=== PATIENT | male | born 1950 | race Caucasian/White ===

== ENCOUNTER 2017-05-06 13:33 | Inpatient (IN) | payer BC, OTHER ==
[2017-05-06 13:41] VITALS: BMI 35.1
[2017-05-06] MEDS ORDERED: morphine CARPU-JECT 4 MG/1 ML DISP.SYRIN IVPUSH ONE ×2 (16:31→18:49)
[2017-05-06] MEDS ORDERED: SODIUM CHLORIDE 1,000 ML IV STA (16:32)
--- NOTE | 2017-05-06 16:40 | PDOC ---
History of Present Illness - General Chief Complaint: Suture/Staple Removal (other) Stated Complaint: Suture/Staple Removal Time Seen by Provider: 05/06/17 14:38 History Source: Patient - History of Present Illness Occurred: reports: other Severity: Yes: severe Lower Extremity Pain Location: right: foot, leg Past History - Past Medical History Allergies/Adverse Reactions: Allergies Allergy/AdvReac Type Severity Reaction Status Date / Time erythromycin base Allergy Rash Verified 05/06/17 13:43 Penicillins Allergy Rash Verified 05/06/17 13:43 Home Medications: Ambulatory Orders Clonazepam [Klonopin] 1.5 mg PO BID 05/06/17 Gabapentin [Neurontin] 400 mg PO PRN 05/06/17 Lamotrigine [Lamictal] 400 mg PO ASDIR 05/06/17 Melatonin 3 mg PO TID 05/06/17 Oxycodone HCl/Acetaminophen [Percocet 5-325 mg Tablet] 1 combo PO PRN 05/06/17 Quetiapine Fumarate [Seroquel] 300 mg PO TID 05/06/17 Ropinirole HCl [Requip Xl] 2 mg PO DAILY 05/06/17 Sitagliptin Phosphate [Januvia] 50 mg PO DAILY 05/06/17 Tramadol HCl 50 mg PO ASDIR 05/06/17 Venlafaxine HCl ER [Effexor Xr -] 75 mg PO DAILY 05/06/17 COPD: No Diabetes: Yes Other medical history: MIGRAINES, URINARY INCONT. - Suicide/Smoking/Psychosocial Hx Smoking History: Never smoked Hx Alcohol Use: No Drug/Substance Use Hx: No Substance Use Type: None Review of Systems - Review of Systems Constitutional: No: Chills, Fever, Malaise Respiratory: No: Shortness of Breath Cardiac (ROS): No: Chest Pain, Palpitations *Physical Exam - Vital Signs Last Vital Signs Temp Pulse Resp BP Pulse Ox 98.5 F 113 H 20 117/73 96 05/06/17 13:35 05/06/17 13:35 05/06/17 13:35 05/06/17 13:35 05/06/17 13:35 - Physical Exam General Appearance: Yes: Appropriately Dressed. No: Apparent Distress HEENT: positive: Normal Voice Neck: positive: Supple Respiratory/Chest: positive: Lungs Clear, Normal Breath Sounds. negative: Respiratory Distress Cardiovascular: positive: S1, S2, Tachycardia Gastrointestinal/Abdominal: positive: Soft. negative: Tender Extremity: positive: Tender, Swelling, Other (right foot and leg significantly edematous with diffuse tenderness to palpation and blanchable erythema to medial foot and ankle, no crepitus palpated, multiple edwin intact, pedal pulses and sensation intact) Integumentary: positive: Dry, Warm Neurologic: positive: Fully Oriented, Alert, Normal Mood/Affect (odd affect) ED Treatment Course - LABORATORY CBC & Chemistry Diagram: 05/06/17 16:43 05/06/17 16:43 - RADIOLOGY Radiology Studies Ordered: Category Date Time Status CHEST X-RAY PORTABLE* [RAD] Stat Radiology 05/06/17 16:30 Ordered DUPLEX VASCUL US-1 LEG [US] Stat Ultrasound 05/06/17 16:30 Ordered Medical Decision Making - Medical Decision Making 05/06/17 16:33 66-year-old male, possible psych histor,y, NIDDM, migraines, prostate cancer, status post unclear R foot/ankle surgery to 3 weeks ago at [facility] "because the bones in my foot was going the wrong way" per pt, denies prior trauma, states he is due for his initial postop check this week and has been bearing weight at home, although specifically instructed to non-weight bear by using wheelchair as per pt. Prior to surgery, used walker to ambulate secondary to chronic bilateral foot pain. Patient states since surgery has had worsening pain/swelling and now unable to put any weight on right foot. No fever, chills , nausea, vomiting, and denies chest pain, shortness of breath or palpitations. See exam R/o RLE DVT vs cellulitis, unlikley osteo, low suspicion for nec fasciitis or compartment syndrome given duration of sxs and exam findings Tachy to 113 but afebrile w/ R foot and leg significantly edematous with diffuse tenderness to palpation and blanchable erythema to medial foot and ankle , no crepitus or bullae formation, multiple edwin intact, pedal pulses and sensation intac -pain control -IVF -abx -US -labs -anticipate admission (PMD Dr Romero) 05/06/17 16:47 Based on foot/ankle film, it appears that patient had surgery for distal tibia and possible fibula fracture. 05/06/17 17:11 H/H 8/25 w/ RBC ~2. Hgb in 2010 was 10. Pt states he does have a history of anemia. Does not remember last hemoglobin and is noncompliant with iron pills. No history of GI bleed. No history of transfusions in the past. Stool guaiac neg today. Cr 3.2 today, was 2.4 on labs in 2010 at [facility]. Pt states he has CKD and is aware that Cr is 3 which is not new per pt, was told his GFR was in the 20s per pt. No longer follows up with his kidney specialist, as is unhappy with care per patient. 05/06/17 19:00 Pt sheila dout to [facility] Olson pending XR/US report and call back for Nick to admit *DC/Admit/Observation/Transfer - Referrals Referrals: Ollie Romero MD [Primary Care Provider] - - Patient Instructions - Post Discharge Activity
[2017-05-06] MEDS ORDERED: morphine CARPU-JECT 10 MG/1 ML DISP.SYRIN ONE ×2 (16:59→18:59)
[2017-05-06 17:05] LABS: BASO % 1.1 % (0-2.0); EOS % 2.3 % (0-4.5); HEMATOCRIT 25.4 % (35.4-49); HEMOGLOBIN 8.4 GM/dL (11.7-16.9); MCH 30.1 pg (25.7-33.7); MCHC 33.1 g/dl (32.0-35.9); MEAN PLT VOLUME 7.3 fl (7.5-11.1); MONO % 9.3 % (3.8-10.2); NEUT % 73.3 % (42.8-82.8); PLATELET COUNT 369 K/MM3 (134-434); RBC 2.79 M/mm3 (4.00-5.60); RDW 14.5 % (11.9-15.9); WHITE BLOOD COUNT 9.4 K/mm3 (4.0-10.0)
[2017-05-06 17:30] LABS: ALBUMIN 3.1 g/dl (3.4-5.0); ANION GAP 9 (8-16); BILIRUBIN,TOTAL 0.4 mg/dL (0.2-1.0); BLOOD UREA NITROGEN 38 mg/dL (7-18); CALCIUM 8.8 mg/dL (8.5-10.1); CHLORIDE 99 mmol/L (98-107); CO2 30 mmol/L (21-32); CREATININE 3.2 mg/dL (0.7-1.3); GLUCOSE,RANDOM 106 mg/dL (74-106); POTASSIUM 4.5 mmol/L (3.5-5.1); SGOT/AST 14 U/L (15-37); SGPT/ALT 22 U/L (12-78); SODIUM 138 mmol/L (136-145); TOT PROT 6.7 g/dl (6.4-8.2)
[2017-05-06 17:31] LABS: ALK PHOS 131 U/L (45-117)
[2017-05-06] MEDS ORDERED: VANCOMYCIN 1,000 MG in DEXTROSE 5%-WATER - 250 ML IVPB ONE (17:48)
[2017-05-06] MEDS ORDERED: AZTREONAM 2 GM/10 ML SYRINGE (RESTRICTED TO ID) IVPUSH ONE (18:15)
[2017-05-06] MEDS ORDERED: VANCOMYCIN 1 GRAM (PRE-DOCKED) 1,000 MG/250 ML BAG IVPB ONE (18:22)
[2017-05-06 18:25] LABS: URINE APPEARANCE CLEAR; URINE BILIRUBIN NEGATIVE (NEGATIVE); URINE BLOOD NEGATIVE (NEGATIVE); URINE COLOR LTYELLOW; URINE GLUCOSE (UA) NEGATIVE (NEGATIVE); URINE KETONE NEGATIVE (NEGATIVE); URINE LEUK ESTERASE NEGATIVE (NEGATIVE); URINE NITRITE NEGATIVE (NEGATIVE); URINE PROTEIN NEGATIVE (NEGATIVE); URINE UROBILINOGEN NEGATIVE mg/dL (0.2-1.0)
[2017-05-06] MEDS ORDERED: SODIUM CHLORIDE 500 ML IV STA (18:49)
[2017-05-06] MEDS ORDERED: traMADol HCL 50 MG TABLET PO SCH (20:00)
[2017-05-06] MEDS ORDERED: morphine SULFATE 4 MG/ML VIAL SQ PRN (20:07)
--- NOTE | 2017-05-06 20:11 | PDOC ---
*Physical Exam - Vital Signs Last Vital Signs Temp Pulse Resp BP Pulse Ox 98.5 F 113 H 20 117/73 96 05/06/17 13:35 05/06/17 13:35 05/06/17 13:35 05/06/17 13:35 05/06/17 13:35 ED Treatment Course - LABORATORY CBC & Chemistry Diagram: 05/06/17 16:43 05/06/17 16:43 - ADDITIONAL ORDERS Additional order review: Laboratory Results 05/06/17 05/06/17 05/06/17 19:00 18:36 18:20 Sodium Potassium Chloride Carbon Dioxide Anion Gap BUN Creatinine Creat Clearance w eGFR Random Glucose Lactic Acid 0.7 Calcium Total Bilirubin AST ALT Alkaline Phosphatase C-Reactive Protein Total Protein Albumin Urine Color Ltyellow Urine Appearance Clear Urine pH 6.0 Ur Specific [place] 1.009 Urine Protein Negative Urine Glucose (UA) Negative Urine Ketones Negative Urine Blood Negative Urine Nitrite Negative Urine Bilirubin Negative Urine Urobilinogen Negative Ur Leukocyte Esterase Negative Stool Occult Blood Negative 05/06/17 05/06/17 16:43 16:43 Sodium 138 Potassium 4.5 Chloride 99 Carbon Dioxide 30 Anion Gap 9 BUN 38 H Creatinine 3.2 H Creat Clearance w eGFR 19.65 Random Glucose 106 Lactic Acid Calcium 8.8 Total Bilirubin 0.4 AST 14 L ALT 22 Alkaline Phosphatase 131 H C-Reactive Protein 12.6 H Total Protein 6.7 Albumin 3.1 L Urine Color Urine Appearance Urine pH Ur Specific [place] Urine Protein Urine Glucose (UA) Urine Ketones Urine Blood Urine Nitrite Urine Bilirubin Urine Urobilinogen Ur Leukocyte Esterase Stool Occult Blood 05/06/17 16:43 RBC 2.79 L MCV 91.0 MCHC 33.1 RDW 14.5 MPV 7.3 L Neutrophils % 73.3 Lymphocytes % 14.0 Monocytes % 9.3 Eosinophils % 2.3 Basophils % 1.1 - Medications Given in the ED: ED Medications Discontinued Medications Generic Name Dose Route Start Last Admin Trade Name Freq PRN Reason Stop Dose Admin Sodium Chloride 1,000 mls @ 1,000 mls/hr 05/06/17 16:32 05/06/17 17:04 Normal Saline - IV 05/06/17 17:31 1,000 mls/hr ASDIR STA Administration Vancomycin HCl 1,000 mg/ 250 mls @ 250 mls/hr 05/06/17 17:48 05/06/17 18:26 Dextrose IVPB 05/06/17 18:47 250 mls/hr ONCE ONE Administration Protocol Morphine Sulfate 4 mg 05/06/17 16:31 05/06/17 17:04 Morphine Injection - IVPUSH 05/06/17 16:32 4 mg ONCE ONE Administration Morphine Sulfate 4 mg 05/06/17 18:49 05/06/17 19:06 Morphine Injection - IVPUSH 05/06/17 18:50 4 mg ONCE ONE Administration Medical Decision Making - Medical Decision Making 05/06/17 20:06 Patient was endorsed to me by VIB[facility] Rodriguez pending admission and US report Case was discussed with Dr. Reyna for admission for Dr. Romero for admission. US reported no DVT will admit for continued antibiotics *DC/Admit/Observation/Transfer Diagnosis at time of Disposition: Cellulitis Qualifiers: Site of cellulitis: extremity Site of cellulitis of extremity: lower extremity Laterality: right Qualified Code(s): L03.115 - Cellulitis of right lower limb Post surgical complication Qualifiers: Surgical complication system/body Area: skin Surgical complication type: other Qualified Code(s): L76.82 - Other postprocedural complications of skin and subcutaneous tissue - Discharge Dispostion Condition at time of disposition: Stable Admit: Yes - Referrals Referrals: Ollie Romero MD [Primary Care Provider] - - Patient Instructions - Post Discharge Activity
[2017-05-06] MEDS: SODIUM CHLORIDE 1,000 ML IV SCH (21:03)
[2017-05-06] MEDS ORDERED: MELATONIN 1 MG TABLET PO SCH (22:00)
[2017-05-06] MEDS: clonazePAM 0.5 MG TABLET PO SCH (22:54)
[2017-05-06] MEDS: HEPARIN NA (PORCINE) 5,000 UNITS/ML 1ML VIAL SQ SCH (22:54)
[2017-05-06] MEDS: GABAPENTIN 400 MG CAPSULE (FP) PO SCH (22:54)
[2017-05-06] MEDS ORDERED: HEPARIN NA (PORCINE) 5,000 UNITS/ML 1ML VIAL ONE (22:57)
[2017-05-07] MEDS ORDERED: MELATONIN 1 MG TABLET PO SCH ×2 (06:00→14:00)
[2017-05-07] MEDS ORDERED: sitaGLIPtin PHOSPHATE 50 MG TABLET ONE (07:47)
[2017-05-07] MEDS: sitaGLIPtin PHOSPHATE 50 MG TABLET PO SCH (07:53)
[2017-05-07] MEDS: INSULIN SLIDING SCALE (NOVOLOG) 1 VIAL SQ SCH ×3 (07:53→16:57)
[2017-05-07 08:20] LABS: BASO % 0.6 % (0-2.0); EOS % 3.1 % (0-4.5); HEMATOCRIT 24.6 % (35.4-49); MCHC 32.8 g/dl (32.0-35.9); MEAN CELL VOLUME 91.5 fl (80-96); MEAN PLT VOLUME 7.1 fl (7.5-11.1); MONO % 7.9 % (3.8-10.2); NEUT % 74.4 % (42.8-82.8); PLATELET COUNT 343 K/MM3 (134-434); RBC 2.68 M/mm3 (4.00-5.60); RDW 15.2 % (11.9-15.9); WHITE BLOOD COUNT 7.9 K/mm3 (4.0-10.8)
[2017-05-07 08:44] LABS: ANION GAP 6 (8-16); BLOOD UREA NITROGEN 34 mg/dL (7-18); CALCIUM 8.4 mg/dL (8.5-10.1); CHLORIDE 107 mmol/L (98-107); CO2 29 mmol/L (21-32); CREATININE 2.8 mg/dL (0.7-1.3); GLUCOSE,RANDOM 87 mg/dL (74-106); POTASSIUM 4.5 mmol/L (3.5-5.1); SODIUM 142 mmol/L (136-145)
[2017-05-07] MEDS ORDERED: ROPINIROLE HCL 2 MG PO SCH ×2 (10:00→14:00)
[2017-05-07] MEDS: HEPARIN NA (PORCINE) 5,000 UNITS/ML 1ML VIAL SQ SCH ×2 (10:07→23:08)
[2017-05-07] MEDS: VENLAFAXINE HCL 75 MG E.R. CAPSULES (FP) PO SCH (10:08)
[2017-05-07] MEDS: GABAPENTIN 400 MG CAPSULE (FP) PO SCH ×2 (10:08→23:08)
[2017-05-07] MEDS: clonazePAM 0.5 MG TABLET PO SCH ×2 (10:09→23:08)
[2017-05-07] MEDS ORDERED: clonazePAM 0.5 MG TABLET ONE ×2 (10:14→22:57)
--- NOTE | 2017-05-07 10:33 | EKG ---
Test Reason : Blood Pressure : / mmHG Vent. Rate : 088 BPM Atrial Rate : 088 BPM P-R Int : 170 ms QRS Dur : 134 ms QT Int : 392 ms P-R-T Axes : 030 -14 -12 degrees QTc Int : 474 ms NORMAL SINUS RHYTHM RIGHT BUNDLE BRANCH BLOCK MINIMAL VOLTAGE CRITERIA FOR LVH, MAY BE NORMAL VARIANT ABNORMAL ECG WHEN COMPARED WITH ECG OF 11-MAR-2010 10:36, NONSPECIFIC T WAVE ABNORMALITY NOW EVIDENT IN ANTERIOR LEADS Confirmed by TOI GIBSON MD ([id number]) on 05/07/2017 10:33:31 AM Referred By: Confirmed By:TOI GIBSON MD
--- NOTE | 2017-05-07 17:18 | PN ---
Progress Note (short form) - Note Progress Note: ID Consult dictated Cellulitis R LE S/P ORIF R tibia/ fibula fracture PCN /Erythromycin allergies Pending c/s empiric vancomycin/ levaquin
[2017-05-07] MEDS ORDERED: VANCOMYCIN 1,000 MG in DEXTROSE 5%-WATER - 250 ML IVPB ONE (17:24)
[2017-05-07] MEDS ORDERED: LEVOFLOXACIN 500 MG IVPB 500 MG/100 ML BAG IVPB ONE (17:45)
--- NOTE | 2017-05-07 19:23 | CONS ---
INFECTIOUS DISEASE CONSULTATION DATE OF CONSULTATION: DATE OF DICTATION: 05/07/2017 REASON FOR CONSULTATION: The patient is a 66-year-old male who is evaluated for cellulitis of the right lower extremity. HISTORY OF PRESENT ILLNESS: History was obtained from the chart as he cannot give a reliable history. Patient appears to be developmentally challenged. He was unclear why he was in the emergency room. He states that he had increasing pain in his right lower extremity to the point where he was unable to ambulate or bear weight. On examination, he was noted to have surgical edwin in his right lower extremity as well as x-ray evidence of intramedullary rods, plates, and screws. Patient cannot tell me when he had orthopedic surgery and at which hospital. His major concern was having the edwin removed. He denies any purulent drainage from the wounds. He has had no fever or chills. PAST MEDICAL HISTORY: Positive for diabetes mellitus, prostate cancer, chronic kidney disease. ALLERGIES: PENICILLIN and ERYTHROMYCIN. Patient develops rash with both. He denies history of anaphylaxis or tongue swelling. MEDICATIONS: As an outpatient include Klonopin, Neurontin, Lamictal, melatonin, oxycodone, Seroquel, Januvia, Effexor. SOCIAL HISTORY: Patient states he lives in the community with his mother. Denies tobacco or alcohol use. Denies risk factors for HIV. His status is not documented. SYSTEMS REVIEW: Neurologic: No loss of consciousness, seizure activity, or focal weakness. Cardiac: Negative chest pain or palpitations. Respiratory: Negative cough or sputum production. Gastrointestinal: Negative vomiting or diarrhea. Genitourinary: Negative for urinary tract infection. Positive for chronic kidney disease. LABORATORY DATA: White count 7.9, hematocrit 24.6, platelet count 343. Sedimentation rate 109. Creatinine 2.8. Blood cultures are pending. Urinalysis negative. PHYSICAL EXAMINATION: General: He is awake and alert. He is in no acute distress. Vital Signs: Temperature 98.1; blood pressure 138/75; pulse 85, regular; respirations 20 per minute. HEENT: Sclerae are anicteric. Heart: Sounds S1, S2. No murmur. Lungs: Clear. Abdomen: Soft, obese, nontender. Extremities: Positive for right lower extremity swelling. He has multiple surgical edwin in place in the area of the malleolus and the calcaneus. There is patchy erythema involving the right lower extremity from the mid-leg to the foot. The distal leg and foot are swollen and warm. There is no purulent drainage noted from the surgical wounds. No crepitus or fluctuance. No lymphangitic streaking. IMPRESSION: 1. Cellulitis of the right lower extremity. 2. Possible infected orthopedic hardware. 3. Status post open reduction and internal fixation, right tibia/fibula fractures. 4. A history of PENICILLIN and ERYTHROMYCIN ALLERGIES. RECOMMENDATIONS: Await culture results. Empiric antibiotic coverage in this PENICILLIN ALLERGIC patient with vancomycin and Levaquin. Orthopedic evaluation. Analgesics as needed. Will follow. Thank you for the kind referral. SILVANA GAMEZ M.D. [id number]
--- NOTE | 2017-05-07 19:41 | HP ---
Admitting History and Physical - Primary Care Physician PCP: Ollie Romero - Admission Chief Complaint: Worsening Pain and swelling Rt LE History of Present Illness: 66 yrs old man poor historian H/O T2DM, Pituitary adenoma, Schizoaffective disorders, Migraine, CA Prostate, CKD stage 4 (Since 2010 BUN/Creat 32/2.4 on ), present to Ed with worsening pain, swelling of post Oprtive Rt LE , patient is unable to provide precise information and details about Surgery says he was unable to walk underwent Rt foot surgery at [facility], unable to recall obverting surgeon name, patient denies prior trauma, states he is due for his initial postop check this week and has been bearing weight at home, although specifically instructed to non-weight bear by using wheelchair as per pt. Prior to surgery, used walker to ambulate secondary to chronic bilateral foot pain. Patient states since surgery has had worsening pain/swelling and now unable to put any weight on right foot. Patient No fever, chills, nausea, vomiting, and denies chest pain, shortness of breath or palpitations. Patient is insisting to remove stapels so he can walk in the Ed hemodynamically stale and afebrile. Admitted for further management RT LE DVT scan is -ve for DVT. - Past Medical History Renal/: Yes: Renal Failure Musculoskeletal: Yes: Other (Foot pain) Endocrine: Yes: Diabetes Mellitus - Smoking History Smoking history: Never smoked - Alcohol/Substance Use Hx Alcohol Use: No - Social History Usual Living Arrangement: Yes: Alone Home Medications - Allergies Allergies/Adverse Reactions: Allergies Allergy/AdvReac Type Severity Reaction Status Date / Time erythromycin base Allergy Rash Verified 05/06/17 13:43 Penicillins Allergy Rash Verified 05/06/17 13:43 - Home Medications Home Medications: Ambulatory Orders Clonazepam [Klonopin] 1.5 mg PO BID 05/06/17 Gabapentin [Neurontin] 400 mg PO BID 05/06/17 Lamotrigine [Lamictal] 400 mg PO BID 05/06/17 Melatonin 3 mg PO TID 05/06/17 Oxycodone HCl/Acetaminophen [Percocet 5-325 mg Tablet] 2 combo PO BID PRN Quetiapine Fumarate [Seroquel] 300 mg PO TID 05/06/17 Ropinirole HCl [Requip Xl] 2 mg PO DAILY 05/06/17 Sitagliptin Phosphate [Januvia] 50 mg PO DAILY 05/06/17 Tramadol HCl 50 mg PO BID PRN 05/06/17 Venlafaxine HCl ER [Effexor Xr -] 75 mg PO DAILY 05/06/17 Family Disease History - Family Disease History Other Family History: Not contributary Review of Systems - Review of Systems Constitutional: reports: No Symptoms HENT: denies: Difficult Swallowing, Ear Discharge Neck: denies: Decreased ROM, Lumps, Pain on Movement Cardiovascular: denies: Chest Pain, Palpitations, Shortness of Breath Respiratory: denies: Cough, Hemoptysis, Orthopnea Gastrointestinal: denies: Abdominal Pain, Bloating, Constipation, Diarrhea Genitourinary: denies: Burning, Discharge, Dysuria Musculoskeletal: reports: Joint Swelling (Rt Foot pain and swelling) Integumentary: denies: Blister Neurological: reports: Change in LOC. denies: Change in Speech, Confusion Psychiatric: reports: Altered Sleep Pattern. denies: Anxiety, Depression Physical Examination Vital Signs: Vital Signs Temperature 98.3 F 05/07/17 18:06 Pulse Rate 88 05/07/17 18:06 Respiratory Rate 20 05/07/17 18:06 Blood Pressure 150/68 05/07/17 18:06 O2 Sat by Pulse Oximetry (%) 100 05/07/17 10:37 Elderly man confused not in distress HEENT: Mm moist no anemia, PERRLA EOMI NECK; No JVD, No Bruit, CHEST: CTA b/L CVs; S1S2 R no m/g/r ABD: No distention, non tender Bs + EXT: Rt LE Swelling around foot and ankle multiple edwin with tense skin, area of erythem around edwin, tenderness +, Pulses +, sensations intact. STILL RUNNER: Non focal Labs: CBC, BMP 05/07/17 07:30 05/07/17 07:30 Imaging - Results Chest X-ray: Report Reviewed (Atelactasis) X-ray: Report Reviewed (Rt Foot and ankle: Multiple Edwin Fracture Rt Distal Tibia nera IM nail Srew in Calcaneous) EKG: Report Reviewed (HR 88 NSR RBBB LAD LVH TN 170 QRS 139 QTC 474) Other: Report Reviewed (Rt LE Doppler; Negative for DVt) Problem List - Problems (1) Cellulitis Assessment/Plan: Pos operative PCN allergy Evaluated by ID recommended Vancomycine and Levofloxacin F/U Cultures Code(s): L03.90 - CELLULITIS, UNSPECIFIED Qualifiers: Site of cellulitis: extremity Site of cellulitis of extremity: lower extremity Laterality: right Qualified Code(s): L03.115 - Cellulitis of right lower limb (2) Post surgical complication Assessment/Plan: Patient is unable to recall Surgeon name and date of surgery, says Dr Romero knows about the procedure will call Dr Romero to get more information, Consider orthopaedics consult, ESR > 100 possibality if infection of the implant. Code(s): T81.9XXA - UNSPECIFIED COMPLICATION OF PROCEDURE, INITIAL ENCOUNTER Qualifiers: Surgical complication system/body Area: skin Surgical complication type: other Qualified Code(s): L76.82 - Other postprocedural complications of skin and subcutaneous tissue (3) CKD stage 4 due to type 2 diabetes mellitus Assessment/Plan: CKD stge 4 last BUN?VCreat noted 32/2.4 on 03/18/2011 Ct abd in 2016 no Hydrinephrosis left Renal cyst. at present stable not volume over loaded. Code(s): E11.22 - TYPE 2 DIABETES MELLITUS W DIABETIC CHRONIC KIDNEY DISEASE; N18.4 - CHRONIC KIDNEY DISEASE, STAGE 4 (SEVERE) (4) Chronic anemia Code(s): D64.9 - ANEMIA, UNSPECIFIED (5) Anemia due to chronic kidney disease Assessment/Plan: F/U anemia w/u Code(s): N18.9 - CHRONIC KIDNEY DISEASE, UNSPECIFIED; D63.1 - ANEMIA IN CHRONIC KIDNEY DISEASE (6) T2DM (type 2 diabetes mellitus) Assessment/Plan: F/U HBa!C and FS Code(s): E11.9 - TYPE 2 DIABETES MELLITUS WITHOUT COMPLICATIONS (7) Schizoaffective disorder Assessment/Plan: Stable cont all home meds Code(s): F25.9 - SCHIZOAFFECTIVE DISORDER, UNSPECIFIED (8) Pituitary microadenoma Assessment/Plan: Stable last MRI in 2016 Code(s): D35.2 - BENIGN NEOPLASM OF PITUITARY GLAND
[2017-05-07] MEDS: ACETAMINOPHEN 325 MG TABLET (FP) PO PRN (20:58)
[2017-05-07] MEDS ORDERED: oxyCODONE HCL 5 MG TABLET ONE (21:36)
[2017-05-07] MEDS: oxyCODONE HCL 5 MG TABLET PO PRN (21:48)
[2017-05-07] MEDS: lamoTRIgine 100 MG TABLET (FP) PO SCH (23:09)
[2017-05-07] MEDS: SODIUM CHLORIDE 1,000 ML IV SCH (23:24)
[2017-05-08] MEDS: INSULIN SLIDING SCALE (NOVOLOG) 1 VIAL SQ SCH ×3 (06:11→17:07)
[2017-05-08] MEDS: sitaGLIPtin PHOSPHATE 50 MG TABLET PO SCH (07:00)
--- NOTE | 2017-05-08 08:05 | PN ---
Progress Note, Physician Chief Complaint: ID Vancomcyin and Levofloxacin Patient operated on the ankle [facility]( [facility]) - Current Medication List Current Medications: Active Medications Acetaminophen (Tylenol -) 650 mg PO Q4H PRN PRN Reason: PAIN LEVEL 1-5 Last Admin: 05/07/17 20:58 Dose: 650 mg Clonazepam (Klonopin -) 1.5 mg PO BID [facility] Last Admin: 05/07/17 23:08 Dose: 1.5 mg Gabapentin (Neurontin -) 400 mg PO BID [facility] Last Admin: 05/07/17 23:08 Dose: 400 mg Heparin Sodium (Porcine) (Heparin -) 5,000 unit SQ BID [facility] Last Admin: 05/07/17 23:08 Dose: 5,000 unit Sodium Chloride (Normal Saline -) 1,000 mls @ 50 mls/hr IV ASDIR [facility] Last Admin: 05/07/17 23:24 Dose: 50 mls/hr Insulin Aspart (Novolog Vial Sliding Scale -) 1 vial SQ TIDAC [facility] PRN Reason: Protocol Last Admin: 05/08/17 06:11 Dose: Not Given Lamotrigine (Lamictal -) 400 mg PO BID [facility] Last Admin: 05/07/17 23:09 Dose: 400 mg Melatonin (Melatonin) 3 mg PO TID [facility] Morphine Sulfate (Morphine Sulfate) 4 mg SQ Q4H PRN PRN Reason: PAIN LEVEL 6-10 Non-Formulary Medication (Ropinirole Hcl [Requip Xl]) 2 mg PO DAILY [facility] Oxycodone HCl (Roxicodone -) 10 mg PO BID PRN PRN Reason: PAIN LEVEL 1-5 Last Admin: 05/07/17 21:48 Dose: 10 mg Sitagliptin Phosphate (Januvia -) 50 mg PO DAILY@0700 [facility] Last Admin: 05/08/17 07:00 Dose: 50 mg Venlafaxine HCl (Effexor Xr -) 75 mg PO DAILY [facility] Last Admin: 05/07/17 10:08 Dose: 75 mg - Objective Vital Signs: Vital Signs Temperature 98.3 F 05/08/17 05:30 Pulse Rate 82 05/08/17 05:30 Respiratory Rate 18 05/08/17 05:30 Blood Pressure 125/65 05/08/17 05:30 O2 Sat by Pulse Oximetry (%) 100 05/07/17 23:25 Constitutional: Yes: Well Nourished, No Distress Neck: Yes: WNL, Supple Cardiovascular: Yes: Regular Rate and Rhythm, S1, S2 Respiratory: Yes: WNL, Regular, CTA Bilaterally Gastrointestinal: Yes: WNL, Normal Bowel Sounds, Soft. No: Tenderness, Tenderness, Epigastrium Extremities: Yes: Other (Amanda minimal erythema) Labs: CBC, BMP 05/07/17 07:30 05/07/17 07:30 Assessment/Plan Microbiology 05/06/17 16:43 Blood - Peripheral Venous Blood Culture - Preliminary NO GROWTH OBTAINED AFTER 24 HOURS, INCUBATION TO CONTINUE FOR 4 DAYS. 05/06/17 16:43 Blood - Peripheral Venous Blood Culture - Preliminary NO GROWTH OBTAINED AFTER 24 HOURS, INCUBATION TO CONTINUE FOR 4 DAYS. Laboratory Tests 05/06/17 05/06/17 05/07/17 16:43 16:43 07:30 WBC 7.9 Hgb 8.0 L Hct 24.6 L Plt Count 343 ESR 109 H BUN Creatinine C-Reactive Protein 12.6 H Random Vancomycin 05/07/17 05/08/17 07:30 06:30 WBC Hgb Hct Plt Count ESR BUN 34 H Creatinine 2.8 H C-Reactive Protein Random Vancomycin Pending Assessment Intramedullary rachel screws Cellulitis Deeper infection involving hardware considered as ESR and CRP elevated Plan Seems reasonable to discharge as infection can be evaluated by his own orthopedist at [facility] and we could facilitate appt for him. Yasmin DAVENPORT
[2017-05-08 08:10] LABS: SERUM IRON SATURATION 12 % (15-55); TOTAL IRON BINDING CAPACITY 242 ug/dL (250-450); UIBC 214 ug/dL (111-343)
[2017-05-08] MEDS ORDERED: clonazePAM 0.5 MG TABLET ONE ×2 (10:16→22:46)
[2017-05-08] MEDS: HEPARIN NA (PORCINE) 5,000 UNITS/ML 1ML VIAL SQ SCH ×2 (10:29→22:42)
[2017-05-08] MEDS: VENLAFAXINE HCL 75 MG E.R. CAPSULES (FP) PO SCH (10:29)
[2017-05-08] MEDS: clonazePAM 0.5 MG TABLET PO SCH ×2 (10:30→22:47)
[2017-05-08] MEDS: lamoTRIgine 100 MG TABLET (FP) PO SCH ×2 (10:30→22:43)
[2017-05-08] MEDS: GABAPENTIN 400 MG CAPSULE (FP) PO SCH ×2 (10:30→22:43)
[2017-05-08] MEDS ORDERED: oxyCODONE HCL 5 MG TABLET ONE (12:23)
[2017-05-08] MEDS ORDERED: ACETAMINOPHEN 325 MG TABLET (FP) ONE (12:23)
[2017-05-08] MEDS: oxyCODONE HCL 5 MG TABLET PO PRN (12:26)
[2017-05-08] MEDS: ACETAMINOPHEN 325 MG TABLET (FP) PO PRN (12:27)
--- NOTE | 2017-05-08 13:22 | PN ---
Progress Note, Physician Chief Complaint: Pt reports he is doing well. Complains of mild discomfort/pain on RLE surgical area. Otherwise, no complaints. Denies any chest pain, sob, n/v/d or weakness. - Current Medication List Current Medications: Active Medications Acetaminophen (Tylenol -) 650 mg PO Q4H PRN PRN Reason: PAIN LEVEL 1-5 Last Admin: 05/08/17 12:27 Dose: 650 mg Clonazepam (Klonopin -) 1.5 mg PO BID [facility] Last Admin: 05/08/17 10:30 Dose: 1.5 mg Gabapentin (Neurontin -) 400 mg PO BID [facility] Last Admin: 05/08/17 10:30 Dose: 400 mg Heparin Sodium (Porcine) (Heparin -) 5,000 unit SQ BID [facility] Last Admin: 05/08/17 10:29 Dose: 5,000 unit Sodium Chloride (Normal Saline -) 1,000 mls @ 50 mls/hr IV ASDIR [facility] Last Admin: 05/07/17 23:24 Dose: 50 mls/hr Insulin Aspart (Novolog Vial Sliding Scale -) 1 vial SQ TIDAC [facility] PRN Reason: Protocol Last Admin: 05/08/17 11:39 Dose: Not Given Lamotrigine (Lamictal -) 400 mg PO BID [facility] Last Admin: 05/08/17 10:30 Dose: 400 mg Melatonin (Melatonin) 3 mg PO TID [facility] Morphine Sulfate (Morphine Sulfate) 4 mg SQ Q4H PRN PRN Reason: PAIN LEVEL 6-10 Non-Formulary Medication (Ropinirole Hcl [Requip Xl]) 2 mg PO DAILY [facility] Oxycodone HCl (Roxicodone -) 10 mg PO BID PRN PRN Reason: PAIN LEVEL 1-5 Last Admin: 05/08/17 12:26 Dose: 10 mg Sitagliptin Phosphate (Januvia -) 50 mg PO DAILY@0700 [facility] Last Admin: 05/08/17 07:00 Dose: 50 mg Venlafaxine HCl (Effexor Xr -) 75 mg PO DAILY [facility] Last Admin: 05/08/17 10:29 Dose: 75 mg - Objective Vital Signs: Vital Signs Temperature 98.1 F 05/08/17 09:12 Pulse Rate 89 05/08/17 09:12 Respiratory Rate 18 05/08/17 09:12 Blood Pressure 140/86 05/08/17 09:12 O2 Sat by Pulse Oximetry (%) 96 05/08/17 09:00 Constitutional: Yes: Well Nourished, No Distress Cardiovascular: Yes: WNL, Regular Rate and Rhythm Respiratory: Yes: WNL, CTA Bilaterally Gastrointestinal: Yes: WNL, Normal Bowel Sounds, Soft Wound/Incision: Yes: Clean/Dry, [place] Intact, Open to air (mild localized swelling, no erythema or purulent drainage.) Neurological: Yes: WNL, Alert, Oriented Labs: CBC, BMP 05/07/17 07:30 05/07/17 07:30 <Isis Oakley - Last Filed: 05/08/17 15:28> - Current Medication List Current Medications: Active Medications Acetaminophen (Tylenol -) 650 mg PO Q4H PRN PRN Reason: PAIN LEVEL 1-5 Last Admin: 05/08/17 12:27 Dose: 650 mg Clonazepam (Klonopin -) 1.5 mg PO BID [facility] Last Admin: 05/08/17 10:30 Dose: 1.5 mg Gabapentin (Neurontin -) 400 mg PO BID [facility] Last Admin: 05/08/17 10:30 Dose: 400 mg Heparin Sodium (Porcine) (Heparin -) 5,000 unit SQ BID [facility] Last Admin: 05/08/17 10:29 Dose: 5,000 unit Sodium Chloride (Normal Saline -) 1,000 mls @ 50 mls/hr IV ASDIR [facility] Last Admin: 05/07/17 23:24 Dose: 50 mls/hr Insulin Aspart (Novolog Vial Sliding Scale -) 1 vial SQ TIDAC [facility] PRN Reason: Protocol Last Admin: 05/08/17 11:39 Dose: Not Given Lamotrigine (Lamictal -) 400 mg PO BID [facility] Last Admin: 05/08/17 10:30 Dose: 400 mg Melatonin (Melatonin) 3 mg PO TID [facility] Morphine Sulfate (Morphine Sulfate) 4 mg SQ Q4H PRN PRN Reason: PAIN LEVEL 6-10 Non-Formulary Medication (Ropinirole Hcl [Requip Xl]) 2 mg PO DAILY [facility] Oxycodone HCl (Roxicodone -) 10 mg PO BID PRN PRN Reason: PAIN LEVEL 1-5 Last Admin: 05/08/17 12:26 Dose: 10 mg Sitagliptin Phosphate (Januvia -) 50 mg PO DAILY@0700 [facility] Last Admin: 05/08/17 07:00 Dose: 50 mg Venlafaxine HCl (Effexor Xr -) 75 mg PO DAILY [facility] Last Admin: 05/08/17 10:29 Dose: 75 mg - Objective Vital Signs: Vital Signs Temperature 37.1 C 05/08/17 14:30 Pulse Rate 90 05/08/17 14:30 Respiratory Rate 20 05/08/17 14:30 Blood Pressure 129/69 05/08/17 14:30 O2 Sat by Pulse Oximetry (%) 96 05/08/17 09:00 Labs: CBC, BMP 05/07/17 07:30 05/07/17 07:30 <Carlos Eduardo Eaton - Last Filed: 05/08/17 15:42> Problem List - Problems (1) Post surgical complication Assessment/Plan: Pt s/p right tibial ORIF with in [place]. Pt afebrile, wbcs normal , blood cultures neg, surgical sites/[place]win without erythema/purulent drainage , no dvt ESR elevated ID following, ok for d/c and recommended to f/u with orthopaedic surgeon Will consult [facility] for safe discharge to rehab Code(s): T81.9XXA - UNSPECIFIED COMPLICATION OF PROCEDURE, INITIAL ENCOUNTER QualifierTitle: Surgical complication system/body Area: skin Surgical complication type: other Qualified Code(s): L76.82 - Other postprocedural complications of skin and subcutaneous tissue (2) Chronic anemia Assessment/Plan: pt asymptomatic Heme occult neg Hg/hct stable Code(s): D64.9 - ANEMIA, UNSPECIFIED (3) Schizoaffective disorder Assessment/Plan: continue home meds Code(s): F25.9 - SCHIZOAFFECTIVE DISORDER, UNSPECIFIED (4) T2DM (type 2 diabetes mellitus) Assessment/Plan: continue home meds Code(s): E11.9 - TYPE 2 DIABETES MELLITUS WITHOUT COMPLICATIONS QualifierTitle: Diabetes mellitus complication status: with kidney complications Diabetes mellitus complication detail: with chronic kidney disease Chronic kidney disease stage: stage 4 (severe) <Isis Oakley - Last Filed: 05/08/17 15:28> Assessment/Plan -patient evaluated and plan reviewed. Agree with above <Carlos Eduardo Eaton - Last Filed: 05/08/17 15:42>
[2017-05-08] MEDS: SODIUM CHLORIDE 1,000 ML IV SCH (22:42)
[2017-05-09] MEDS ORDERED: oxyCODONE HCL 5 MG TABLET ONE (05:23)
[2017-05-09] MEDS: oxyCODONE HCL 5 MG TABLET PO PRN (05:29)
[2017-05-09] MEDS: INSULIN SLIDING SCALE (NOVOLOG) 1 VIAL SQ SCH (06:19)
[2017-05-09] MEDS: sitaGLIPtin PHOSPHATE 50 MG TABLET PO SCH (06:20)
[2017-05-09 07:28] LABS: BASO % 0.4 % (0-2.0); EOS % 3.5 % (0-4.5); HEMATOCRIT 24.3 % (35.4-49); HEMOGLOBIN 8.1 GM/dL (11.7-16.9); LYMPH % 16.2 % (8-40); MCH 30.3 pg (25.7-33.7); MCHC 33.3 g/dl (32.0-35.9); MEAN CELL VOLUME 91.1 fl (80-96); MEAN PLT VOLUME 7.2 fl (7.5-11.1); NEUT % 70.9 % (42.8-82.8); PLATELET COUNT 355 K/MM3 (134-434); RBC 2.67 M/mm3 (4.00-5.60); RDW 14.7 % (11.9-15.9); WHITE BLOOD COUNT 7.3 K/mm3 (4.0-10.0)
[2017-05-09 07:53] LABS: ANION GAP 7 (8-16); BLOOD UREA NITROGEN 32 mg/dL (7-18); CALCIUM 8.5 mg/dL (8.5-10.1); CHLORIDE 106 mmol/L (98-107); CO2 28 mmol/L (21-32); CREATININE 2.6 mg/dL (0.7-1.3); GLUCOSE,RANDOM 80 mg/dL (74-106); MAGNESIUM 2.6 mg/dL (1.8-2.4); PHOSPHOROUS 3.9 mg/dL (2.5-4.9); POTASSIUM 4.2 mmol/L (3.5-5.1); SODIUM 141 mmol/L (136-145)
[2017-05-09] MEDS ORDERED: morphine CARPU-JECT 10 MG/1 ML DISP.SYRIN ONE (08:37)
--- NOTE | 2017-05-09 09:04 | PN ---
Progress Note, Physician - Current Medication List Current Medications: Active Medications Acetaminophen (Tylenol -) 650 mg PO Q4H PRN PRN Reason: PAIN LEVEL 1-5 Last Admin: 05/08/17 12:27 Dose: 650 mg Clonazepam (Klonopin -) 1.5 mg PO BID [facility] Last Admin: 05/08/17 22:47 Dose: 1.5 mg Gabapentin (Neurontin -) 400 mg PO BID [facility] Last Admin: 05/08/17 22:43 Dose: 400 mg Heparin Sodium (Porcine) (Heparin -) 5,000 unit SQ BID [facility] Last Admin: 05/08/17 22:42 Dose: 5,000 unit Sodium Chloride (Normal Saline -) 1,000 mls @ 50 mls/hr IV ASDIR [facility] Last Admin: 05/08/17 22:42 Dose: 50 mls/hr Insulin Aspart (Novolog Vial Sliding Scale -) 1 vial SQ TIDAC [facility] PRN Reason: Protocol Last Admin: 05/09/17 06:19 Dose: Not Given Lamotrigine (Lamictal -) 400 mg PO BID [facility] Last Admin: 05/08/17 22:43 Dose: 400 mg Melatonin (Melatonin) 3 mg PO TID [facility] Morphine Sulfate (Morphine Sulfate) 4 mg SQ Q4H PRN PRN Reason: PAIN LEVEL 6-10 Non-Formulary Medication (Ropinirole Hcl [Requip Xl]) 2 mg PO DAILY [facility] Oxycodone HCl (Roxicodone -) 10 mg PO BID PRN PRN Reason: PAIN LEVEL 1-5 Last Admin: 05/09/17 05:29 Dose: 10 mg Sitagliptin Phosphate (Januvia -) 50 mg PO DAILY@0700 [facility] Last Admin: 05/09/17 06:20 Dose: 50 mg Venlafaxine HCl (Effexor Xr -) 75 mg PO DAILY [facility] Last Admin: 05/08/17 10:29 Dose: 75 mg - Objective Vital Signs: Vital Signs Temperature 98.3 F 05/09/17 07:41 Pulse Rate 104 H 05/09/17 07:41 Respiratory Rate 20 05/09/17 07:41 Blood Pressure 146/78 05/09/17 07:41 O2 Sat by Pulse Oximetry (%) 97 05/08/17 22:00 Labs: CBC, BMP 05/09/17 07:11 01/17/18 07:08 Problem List - Problems (1) Post surgical complication Code(s): T81.9XXA - UNSPECIFIED COMPLICATION OF PROCEDURE, INITIAL ENCOUNTER Qualifiers: Surgical complication system/body Area: skin Surgical complication type: other Qualified Code(s): L76.82 - Other postprocedural complications of skin and subcutaneous tissue (2) Chronic anemia Code(s): D64.9 - ANEMIA, UNSPECIFIED (3) Schizoaffective disorder Code(s): F25.9 - SCHIZOAFFECTIVE DISORDER, UNSPECIFIED (4) T2DM (type 2 diabetes mellitus) Code(s): E11.9 - TYPE 2 DIABETES MELLITUS WITHOUT COMPLICATIONS Qualifiers: Diabetes mellitus complication status: with kidney complications Diabetes mellitus complication detail: with chronic kidney disease Chronic kidney disease stage: stage 4 (severe) (5) Anemia due to chronic kidney disease Code(s): N18.9 - CHRONIC KIDNEY DISEASE, UNSPECIFIED; D63.1 - ANEMIA IN CHRONIC KIDNEY DISEASE (6) CKD stage 4 due to type 2 diabetes mellitus Code(s): E11.22 - TYPE 2 DIABETES MELLITUS W DIABETIC CHRONIC KIDNEY DISEASE; N18.4 - CHRONIC KIDNEY DISEASE, STAGE 4 (SEVERE) Assessment/Plan (1) Post surgical complication Assessment/Plan: Pt s/p right tibial ORIF with in [place]. Pt afebrile, wbcs normal , blood cultures neg, surgical sites/edwin without erythema/purulent drainage , no dvt ESR elevated ID following, ok for d/c and recommended to f/u with orthopaedic surgeon Will consult caremanager for safe discharge to rehab Code(s): T81.9XXA - UNSPECIFIED COMPLICATION OF PROCEDURE, INITIAL ENCOUNTER QualifierTitle: Surgical complication system/body Area: skin Surgical complication type: other Qualified Code(s): L76.82 - Other postprocedural complications of skin and subcutaneous tissue (2) Chronic anemia Assessment/Plan: CKD related. pt asymptomatic Heme occult neg Hg/hct stable Code(s): D64.9 - ANEMIA, UNSPECIFIED (3) Schizoaffective disorder Assessment/Plan: continue home meds Code(s): F25.9 - SCHIZOAFFECTIVE DISORDER, UNSPECIFIED (4) T2DM (type 2 diabetes mellitus) Assessment/Plan: continue home meds Code(s): E11.9 - TYPE 2 DIABETES MELLITUS WITHOUT COMPLICATIONS QualifierTitle: Diabetes mellitus complication status: with kidney complications Diabetes mellitus complication detail: with chronic kidney disease Chronic kidney disease stage: stage 4 (severe)
[2017-05-09] MEDS ORDERED: clonazePAM 0.5 MG TABLET ONE (10:19)
[2017-05-09] MEDS: VENLAFAXINE HCL 75 MG E.R. CAPSULES (FP) PO SCH (10:29)
[2017-05-09] MEDS: clonazePAM 0.5 MG TABLET PO SCH (10:29)
[2017-05-09] MEDS: lamoTRIgine 100 MG TABLET (FP) PO SCH (10:30)
[2017-05-09] MEDS: GABAPENTIN 400 MG CAPSULE (FP) PO SCH (10:30)
[2017-05-09] MEDS: HEPARIN NA (PORCINE) 5,000 UNITS/ML 1ML VIAL SQ SCH (10:38)
--- NOTE | 2017-05-09 11:04 | DS ---
Physical Examination Vital Signs: Vital Signs Temperature 98.3 F 05/09/17 07:41 Pulse Rate 104 H 05/09/17 07:41 Respiratory Rate 20 05/09/17 07:41 Blood Pressure 146/78 05/09/17 07:41 O2 Sat by Pulse Oximetry (%) 97 05/08/17 22:00 Constitutional: Yes: Well Nourished, No Distress Cardiovascular: Yes: WNL, Regular Rate and Rhythm Respiratory: Yes: WNL, Regular, CTA Bilaterally Gastrointestinal: Yes: WNL, Normal Bowel Sounds, Soft Edema: Yes Edema: RLE: Trace Wound/Incision: Yes: [place] Intact (mild swelling, no erythema) Neurological: Yes: WNL, Alert, Oriented Psychiatric: Yes: Alert, Oriented Labs: CBC, BMP 05/09/17 07:11 05/09/17 07:08 Discharge Summary Reason For Visit: POSTOPERATIVE COMPLICATION, CELLULITIS Current Active Problems Anemia due to chronic kidney disease (Acute) CKD stage 4 due to type 2 diabetes mellitus (Acute) Cellulitis (Acute) Chronic anemia (Acute) Pituitary microadenoma (Acute) Post surgical complication (Acute) Schizoaffective disorder (Acute) T2DM (type 2 diabetes mellitus) (Acute) Hospital Course: is a pleasant 66 year old male with pmh of Schizoaffective disorder, DM2 , CKD-stage4, Chronic anemia and obesity who is s/p right tibial ORIF(pt unable to recall when), came in 3 days ago with increased pain/redness/swelling to RLE. Pt reports he was told not to weightbear on RLE and to use wheelchair for ambulation but he was not compliant with this. ID was consulted concerned for cellulitis, pt received 1 dose of vanco/zosyn, and no further antibiotics were needed per ID recs, pt cleared for d/c per ID and advised to f/u with ortho surgeon. Pt has been doing well during his stay. He has been afebrile, vitals signs stable, wbcs wnl, and with no erythema to RLE. Pt advised to follow up with Ortho surgeon Terell marquez for further eval. Pt also advised to follow up with PCP within 7 days. Plan of care discussed with PCP Condition: Fair - Instructions Diet, Activity, Other Instructions: resume previous diet. ambulate as tolerated. weightbearing on right leg as per surgeon Referrals: Aaron MD [Non Staff, Medical] - 1 Week (Please follow up with Orthopaedic surgeon Terell Camp as soon as possible Phone#: [phone]) Ollie Romero MD [Primary Care Provider] - 1 Week (Please follow up within 7 days with ) Disposition: HOME - Home Medications Comprehensive Discharge Medication List: Ambulatory Orders Clonazepam [Klonopin] 1.5 mg PO BID 05/06/17 Gabapentin [Neurontin] 400 mg PO BID 05/06/17 Lamotrigine [Lamictal] 400 mg PO BID 05/06/17 Melatonin 3 mg PO TID 05/06/17 Oxycodone HCl/Acetaminophen [Percocet 5-325 mg Tablet] 2 combo PO BID PRN Quetiapine Fumarate [Seroquel] 300 mg PO TID 05/06/17 Ropinirole HCl [Requip Xl] 2 mg PO DAILY 05/06/17 Sitagliptin Phosphate [Januvia] 50 mg PO DAILY 05/06/17 Tramadol HCl 50 mg PO BID PRN 05/06/17 Venlafaxine HCl ER [Effexor Xr -] 75 mg PO DAILY 05/06/17
[2017-05-09 11:32] VITALS: BP 151/77; PULSE 89; TEMP 99
[2017-05-09] MEDS ORDERED: QUEtiapine FUMARATE 300 MG TABLET PO SCH (14:00)
== END 2017-05-09 11:40 | disposition home or self-care (01) | DRG 920 ==
LOC: JER 13:33 → JERBED 21:18 → UNDODISIN 05-07 13:58
PROVIDERS: ADMIT Surgery; ATTEND Specialist
DX: L76.82 Other postprocedural complications of skin and subcutaneous tissue (principal); N18.4 Chronic kidney disease, stage 4 (severe); L03.115 Cellulitis of right lower limb; J98.11 Atelectasis; Y83.8 Other surgical procedures as the cause of abnormal reaction of the patient, or of later complication, without mention of misadventure at the time of the procedure; D35.2 Benign neoplasm of pituitary gland; F25.8 Other schizoaffective disorders; E11.22 Type 2 diabetes mellitus with diabetic chronic kidney disease; D63.1 Anemia in chronic kidney disease; Z85.46 Personal history of malignant neoplasm of prostate; Z88.0 Allergy status to penicillin; E66.8 Other obesity; Z68.35 Body mass index [BMI] 35.0-35.9, adult
CPT/HCPCS: 36415; 71045-TC; 73590-TC-RT; 73610-TC-RT; 73630-TC-RT; 80048; 80053; 81003; 82272; 82550; 82607; 82728; 82962; 83036; 83540; 83550; 83605; 83735; 84100; 85025; 85651; 86140; 87040; 93005; 93010; 93971-TC; 97116-GP; 97161-GP; 99285-25; G0480; J1644

== ENCOUNTER 2017-05-31 11:13 | Emergency (ER) | payer BC, OTHER ==
[2017-05-31 11:33] VITALS: BMI 35.7
--- NOTE | 2017-05-31 12:01 | PDOC ---
History of Present Illness - General Chief Complaint: Weakness Stated Complaint: Weakness Time Seen by Provider: 05/31/17 11:29 History Source: Patient Exam Limitations: No Limitations - History of Present Illness Initial Comments: 05/31/17 12:01 67-year-old male presents to the emergency room with complaints of generalized weakness over the past week and pain and mild swelling to his right ankle where he had surgery recently for a fracture he sustained last July secondary to fall. Patient states had approximately 4 surgeries to the right ankle secondary to hardware malfunction and pain to the area Patient denies fever, chills, nausea, headache, visual changes, abdominal pain, diarrhea or dysuria. Patient does state has noted blood streak stool intermittently for the past 3 weeks with defecation. Patient states otherwise no bright red blood and denies history of hemorrhoids. Patient currently on no anticoagulation therapy . Timing/Duration: getting worse Severity: mild, moderate Associated Symptoms: reports: weakness Past History - Travel Traveled outside of the country in the last 30 days: No - Past Medical History Allergies/Adverse Reactions: Allergies Allergy/AdvReac Type Severity Reaction Status Date / Time erythromycin base Allergy Rash Verified 05/31/17 11:28 Penicillins Allergy Rash Verified 05/31/17 11:28 Home Medications: Ambulatory Orders Clonazepam [Klonopin] 1.5 mg PO BID 05/06/17 Gabapentin [Neurontin] 400 mg PO BID 05/06/17 Lamotrigine [Lamictal] 400 mg PO BID 05/06/17 Melatonin 3 mg PO TID 05/06/17 Oxycodone HCl/Acetaminophen [Percocet 5-325 mg Tablet] 2 combo PO BID PRN Quetiapine Fumarate [Seroquel] 300 mg PO TID 05/06/17 Ropinirole HCl [Requip Xl] 2 mg PO DAILY 05/06/17 Sitagliptin Phosphate [Januvia] 50 mg PO DAILY 05/06/17 Tramadol HCl 50 mg PO BID PRN 05/06/17 Venlafaxine HCl ER [Effexor Xr -] 75 mg PO DAILY 05/06/17 Oxycodone HCl/Acetaminophen [Percocet 5-325 mg Tablet] 1 - 2 tab PO BID #10 tablet MDD 4 tabs 05/09/17 COPD: No Diabetes: Yes - Suicide/Smoking/Psychosocial Hx Smoking History: Never smoked Have you smoked in the past 12 months: No Information on smoking cessation initiated: No Hx Alcohol Use: No Drug/Substance Use Hx: No Substance Use Type: None Patient Lives Alone: No Lives with/in: parents (mother and SUPERVISOR SAWMILL) Review of Systems - Review of Systems Able to Perform ROS?: Yes Constitutional: Yes: Weakness HEENTM: No: Symptoms Reported Respiratory: No: Symptoms reported Cardiac (ROS): No: Symptoms Reported ABD/GI: No: Symptoms Reported : No: Symptoms Reported Musculoskeletal: Yes: Joint Pain, Joint Swelling Integumentary: No: Symptoms Reported Neurological: No: Symptoms reported Hematologic/Lymphatic: No: Symptoms Reported *Physical Exam - Vital Signs Last Vital Signs Temp Pulse Resp BP Pulse Ox 98.3 F 102 H 20 102/75 97 05/31/17 11:29 05/31/17 11:29 05/31/17 11:29 05/31/17 11:29 05/31/17 11:29 - Physical Exam General Appearance: Yes: Nourished, Appropriately Dressed. No: Apparent Distress HEENT: positive: EOMI, RADHA. negative: Pale Conjunctivae Neck: positive: Normal Thyroid, Supple Respiratory/Chest: positive: Lungs Clear, Normal Breath Sounds. negative: Respiratory Distress, Accessory Muscle Use Cardiovascular: positive: Regular Rhythm, Tachycardia. negative: Murmur Gastrointestinal/Abdominal: positive: Soft. negative: Tenderness Extremity: positive: Normal Capillary Refill, Tender (to medial aspect of right malleolus over healed incisions). negative: Normal Range of Motion Integumentary: positive: Normal Color, Warm, Moist, Swelling (generalized ight malleolus). negative: Erythema Neurologic: positive: Normal Mood/Affect (mildly anxious), Motor Strength 5/5 ED Treatment Course - LABORATORY CBC & Chemistry Diagram: 05/31/17 12:11 05/31/17 12:11 - RADIOLOGY Radiology Studies Ordered: Category Date Time Status CHEST X-RAY PORTABLE* [RAD] Stat Radiology 05/31/17 11:54 Ordered DUPLEX VASCUL US-1 LEG [US] Stat Ultrasound 05/31/17 11:54 Ordered Medical Decision Making - Medical Decision Making 05/31/17 12:14 Patient here with complaints of generalized weakness worsening over the past few weeks. Patient also mentions blood-tinged stool one questioning about bowel pattern but denies abdominal pain or blood in his last bowel movement which was 2 days ago. Due to fracture 1 year ago with recurrent surgery of the right ankle and swelling with tenderness to area, Patient concerning for cellulitis/DVT and ordered for labs, imaging, and will send stool specimen for occult blood 05/31/17 12:37 Laboratory Tests 05/06/17 05/07/17 05/09/17 16:43 07:30 07:11 WBC Hgb 8.4 L 8.0 L 8.1 L 05/31/17 12:11 WBC 9.2 Hgb 8.6 L 05/31/17 12:53 Laboratory Tests 03/18/11 05/06/17 05/07/17 09:40 16:43 07:30 BUN 32 H 38 H 34 H Creatinine 3.2 H 2.8 H 05/09/17 05/31/17 07:08 12:11 BUN 32 H 40 H D Creatinine 2.6 H Pt ordered for 1 liter of NS 05/31/17 13:41 There is no evidence of DVT in the right lower extremity. Patient requesting to go home but also requesting a lunch tray. I explained to the patient the lab processing and results are not completed and do request a urinalysis 05/31/17 14:20 Laboratory Tests 05/31/17 13:31 Stool Occult Blood Negative 05/31/17 16:15 Laboratory Tests 05/31/17 14:55 Urine Ketones Negative Urine Nitrite Negative Ur Leukocyte Esterase Negative Pt remains asymptomatic. will discharge home with transportation. repeat vitals stable *DC/Admit/Observation/Transfer Diagnosis at time of Disposition: Weakness - Discharge Dispostion Disposition: HOME Condition at time of disposition: Good - Referrals Referrals: Ollie Romero MD [Primary Care Provider] - - Patient Instructions Printed Discharge Instructions: DI for Muscle Weakness Additional Instructions: Please drink plenty of fluids and eat small frequent meals. Please follow up with your PMD - Post Discharge Activity
[2017-05-31 12:18] LABS: BASO % 0.4 % (0-2.0); HEMATOCRIT 26.8 % (35.4-49); HEMOGLOBIN 8.6 GM/dL (11.7-16.9); LYMPH % 11.2 % (8-40); MCH 28.5 pg (25.7-33.7); MCHC 32.2 g/dl (32.0-35.9); MEAN CELL VOLUME 88.5 fl (80-96); MEAN PLT VOLUME 8.2 fl (7.5-11.1); NEUT % 77.4 % (42.8-82.8); PLATELET COUNT 244 K/MM3 (134-434); RBC 3.03 M/mm3 (4.00-5.60); WHITE BLOOD COUNT 9.2 K/mm3 (4.0-10.0)
[2017-05-31 12:45] LABS: ALBUMIN 3.4 g/dl (3.4-5.0); ALK PHOS 196 U/L (45-117); ANION GAP 9 (8-16); BILIRUBIN,TOTAL 0.4 mg/dL (0.2-1.0); BLOOD UREA NITROGEN 40 mg/dL (7-18); CALCIUM 8.9 mg/dL (8.5-10.1); CHLORIDE 98 mmol/L (98-107); CO2 30 mmol/L (21-32); CREATININE 3.1 mg/dL (0.7-1.3); GLUCOSE,RANDOM 94 mg/dL (74-106); POTASSIUM 3.8 mmol/L (3.5-5.1); SGOT/AST 15 U/L (15-37); SGPT/ALT 17 U/L (12-78); SODIUM 137 mmol/L (136-145); TOT PROT 6.7 g/dl (6.4-8.2)
[2017-05-31] MEDS ORDERED: SODIUM CHLORIDE 1,000 ML IV STA (12:53)
[2017-05-31 15:09] LABS: URINE APPEARANCE CLEAR; URINE BILIRUBIN NEGATIVE (NEGATIVE); URINE BLOOD NEGATIVE (NEGATIVE); URINE COLOR STRAW; URINE GLUCOSE (UA) NEGATIVE (NEGATIVE); URINE KETONE NEGATIVE (NEGATIVE); URINE LEUK ESTERASE NEGATIVE (NEGATIVE); URINE NITRITE NEGATIVE (NEGATIVE); URINE PROTEIN NEGATIVE (NEGATIVE); URINE UROBILINOGEN NEGATIVE mg/dL (0.2-1.0)
--- NOTE | 2017-05-31 15:34 | EKG ---
Test Reason : Blood Pressure : / mmHG Vent. Rate : 094 BPM Atrial Rate : 094 BPM P-R Int : 166 ms QRS Dur : 126 ms QT Int : 376 ms P-R-T Axes : 027 -22 -07 degrees QTc Int : 470 ms NORMAL SINUS RHYTHM RIGHT BUNDLE BRANCH BLOCK MINIMAL VOLTAGE CRITERIA FOR LVH, MAY BE NORMAL VARIANT ABNORMAL ECG WHEN COMPARED WITH ECG OF 06-MAY-2017 17:07, NO SIGNIFICANT CHANGE WAS FOUND Confirmed by CY DAVENPORT, JHON ([id number]) on 05/31/2017 3:34:24 PM Referred By: Confirmed By:JHON BENOIT MD
[2017-05-31 19:38] VITALS: BP 136/80; PULSE 88; TEMP 98
== END 2017-05-31 19:38 | disposition home or self-care (01) ==
LOC: SUPCPDRO 11:13 → JER 11:13
PROC: 3E0337Z Introduction of Electrolytic and Water Balance Substance into Peripheral Vein, Percutaneous Approach (ICD-10-PCS; principal; 2017-05-31)
DX: M62.81 Muscle weakness (generalized) (principal); Z87.81 Personal history of (healed) traumatic fracture; Z98.890 Other specified postprocedural states
CPT/HCPCS: 36415; 71045-TC-FY; 80053; 81003; 82272; 83735; 85025; 86850; 86900; 86901; 87086; 93005; 93010; 93971-TC; 99284-25